=== PATIENT | female | born 1955 | race Caucasian/White ===

== ENCOUNTER → 2019-09-21 | Outpatient (CLI) | payer MEDICARE ==
--- NOTE | 2019-09-21 08:39 | Diagnostic Imaging Report ---
PROCEDURE: US Thyroid. TECHNIQUE: Multiple Real-time grayscale images were obtained of the thyroid in various projections. INDICATION: Thyroid nodules. COMPARISON: No priors for comparison. FINDINGS: The right thyroid lobe measures 5.0 x 1.5 x 1.4 cm. There are multiple mixed well-defined nonaggressive appearing solid as well as mixed solid and cystic nodules in the right lobe, the largest of which in the upper pole measures 9 mm in long axis. The left thyroid lobe is 4.4 x 1.6 x 1.0 cm. It contains a 3 mm benign cystic nodule in its upper pole. The isthmus is non-thickened at 2 mm and contains a hypoechoic nodule measuring 3 mm. IMPRESSION: Subcentimeter benign-appearing bilateral thyroid nodules. Dictated by: Dictated on workstation # [id number]
== END ==
LOC: RAD 07:39
DX: E04.1 Nontoxic single thyroid nodule (principal)
CPT/HCPCS: 76536

== ENCOUNTER → 2021-08-10 | Outpatient (CLI) | payer MEDICARE ==
--- NOTE | 2021-08-10 13:06 | Diagnostic Imaging Report ---
PROCEDURE: US Thyroid. TECHNIQUE: Multiple real-time grayscale images were obtained of the thyroid in various projections. INDICATION: Follow-up thyroid nodule. COMPARISON: 09/21/2019. FINDINGS: Both thyroid lobes demonstrate smooth and homogenous background echotexture. Color flow Doppler demonstrates normal and symmetric vascularity bilaterally. The right lobe measures 4.6 cm in length, 1.3 cm AP, and 1.7 cm transverse. The left lobe measures 4.7 cm in length, 1.1 cm AP, and 1.1 cm transverse. The isthmus measures 0.2 cm. Scattered subcentimeter nodules are seen in the thyroid, with the largest on the right in the superior pole measuring 0.7 x 0.4 x 0.7 cm, previously measuring 0.9 x 0.5 x 0.8 cm. The largest on the left measures 0.4 x 0.2 x 0.3 cm, previously measuring 0.3 x 0.2 x 0.2 cm. IMPRESSION: 1. No significant change in the benign-appearing subcentimeter nodules in both lobes of the thyroid. Based on imaging characteristics and size, no dedicated follow-up is recommended regarding these nodules. Dictated by: Dictated on workstation # [id number]
== END ==
LOC: RAD 11:46
PROVIDERS: ATTEND Nurse Practitioner Family
DX: E04.2 Nontoxic multinodular goiter (principal)
CPT/HCPCS: 76536